=== PATIENT | male | born 1945 ===

== ENCOUNTER 2017-06-10 09:43 | Day surgery (SDC) | payer MEDICARE, OTHER ==
[~2017-06-10] VITALS: Ht 157.5 cm; Wt 55.0 kg
[~2017-06-10 09:43] MED LIST: ASPI325 PO; ATOR40TA PO; Hair, Skin & N1 EACH PO; Humalog Mi100 UNIT/4; INSDET100 SC; LOSA50 PO
[2017-06-10] MEDS ORDERED: VITAMIN D31000 UNIT PO (10:15)
[2017-06-11 04:13] LABS: Anion Gap 8 mmol/L (6-16); Blood Urea Nitrogen 27 mg/dL (8-24); Bun/Creatinine Ratio 22.3 (12.0-20.0); CO2, Blood 27 mmol/L (21-32); Calcium, Blood 8.1 mg/dL (8.5-10.1); Chloride, Blood 110 mmol/L (98-108); Creatinine, Blood 1.21 mg/dL (0.60-1.20); Glomerular Filtration Rate >60 (60-); Glucose, Blood 96 mg/dL (70-99); Potassium, Blood 4.3 mmol/L (3.5-5.5); Sodium, Blood 145 mmol/L (136-145)
[2017-06-11] MEDS ORDERED: CLOP75 PO (10:19)
== END 2017-06-11 10:38 | disposition home or self-care (01) ==
LOC: MHTC 09:43 → ICUW 14:03 → MHTC 06-11 10:38
PROVIDERS: Internal Medicine Interventional Cardiology
PROC: 047L3Z1 Dilation of Left Femoral Artery using Drug-Coated Balloon, Percutaneous Approach (ICD-10-PCS; principal; 2017-06-11)
PROC: 04CL3ZZ Extirpation of Matter from Left Femoral Artery, Percutaneous Approach (ICD-10-PCS; principal; 2017-06-11)
DX: E11.51 Type 2 diabetes mellitus with diabetic peripheral angiopathy without gangrene (principal); T82.856A Stenosis of peripheral vascular stent, initial encounter; I70.212 Atherosclerosis of native arteries of extremities with intermittent claudication, left leg; I70.92 Chronic total occlusion of artery of the extremities; E11.22 Type 2 diabetes mellitus with diabetic chronic kidney disease; I12.9 Hypertensive chronic kidney disease with stage 1 through stage 4 chronic kidney disease, or unspecified chronic kidney disease; N18.9 Chronic kidney disease, unspecified; Z79.4 Long term (current) use of insulin; Z23 Encounter for immunization; E78.5 Hyperlipidemia, unspecified; Z87.891 Personal history of nicotine dependence
CPT/HCPCS: 36415; 37225; 75625; 75710; 75774; 80048; 82947; 85347; 85730; 93005; 93010; 99152; 99153; C1714; C1725; C1769; C1884; C1887; C1894; C2623; G0008; J1644; J1815; J2250; J2720; J3010; J7030; J7040; J7042; Q2038; Q9967